=== PATIENT | female | born 1940 | race Caucasian/White ===

== ENCOUNTER 2019-12-19 20:28 | Inpatient (IN) | payer MEDICARE ==
[~2019-12-19] VITALS: Ht 162.6 cm; Wt 55.1 kg
[~2019-12-19 20:28] MED LIST: GLUCOPHAGE500 MG PO; LINZESS145 MCG PO; PROTONIX40 MG PO
[2019-12-19 20:57] LABS: BASOPHILS 0.1 % (0-2); EOSINOPHILS 1.1 % (0-7); HEMATOCRIT 45.7 % (36.0-48.0); IMMATURE GRANULOCYTES 0.2 % (0-5); LYMPHOCYTES 25.2 % (15-50); MCHC 32.8 g/dL (31.0-37.0); MCV 94.4 fL (80.0-100.0); MEAN PLATELET VOLUME 10.3 fL (7.4-10.4); MONOCYTES 8.1 % (2-11); NEUTROPHILS 65.3 % (40-80); PLATELET COUNT 261 10x3/uL (130-400); RBC 4.84 10x6/uL (4.00-5.40); RDW 13.2 % (11.5-14.5); WBC 9.1 10x3/uL (4.8-10.8)
[2019-12-19 21:06] LABS: CALC OSMOLALITY 280 mosm/kg (275-300); CALCIUM 9.6 mg/dL (8.5-10.1); CHLORIDE - SERUM 100 mmol/L (98-107); CREATININE - SERUM 0.5 mg/dL (0.6-1.3); GLUCOSE 172 mg/dL (74-106); POTASSIUM - SERUM 3.9 mmol/L (3.5-5.1); SODIUM 138 mmol/L (136-145); UREA NITROGEN 16 mg/dL (7-18); eGFR NON AFRICAN AMERICAN > 90 mL/min (90-120)
[2019-12-19 21:15] LABS: ALBUMIN 3.6 g/dL (3.4-5.0); ALKALINE PHOSPHATASE 66 U/L (30-120); ALT (SGPT) 20 U/L (10-68); AMYLASE - SERUM 24 U/L (25-115); BILIRUBIN - TOTAL 0.57 mg/dL (0.2-1.3); PROTEIN - SERUM 7.6 g/dL (6.4-8.2)
[2019-12-19 21:23] LABS: LIPASE 37 U/L (73-393); TROPONIN-I < 0.017 ng/mL (0.000-0.060)
[2019-12-19 23:00] VITALS: BP 128/74
[2019-12-20 00:26] LABS: BILIRUBIN NEGATIVE (NEGATIVE); GLUCOSE 100 mg/dL (NEGATIVE); KETONE SMALL mg/dL (NEGATIVE); NITRITE NEGATIVE (NEGATIVE); UROBILINOGEN NORMAL (NORMAL)
[2019-12-20 00:28] LABS: BACTERIA FEW /hpf (NEGATIVE); EPITHELIAL CELLS 0-5 /hpf (0-5); RED CELLS - URINE 0-5 /hpf (0-5); WHITE CELLS - URINE 0-5 /hpf (NEGATIVE)
[2019-12-20 02:11] VITALS: BP 139/78; BMI 25.8
--- NOTE | 2019-12-20 02:43 | NUR ---
ADMIT TO ROOM 2109 AT 0150 FROM ER. ALERT/ORIENTED. IVF NS @ 75ML/HR TO LEF A/C. NONLABORED RESPIRATIONS. ACTIVE BOWEL SOUNDS. ABDOMEN SOFT. PT STATES SHE HAD BM DAY BEFORE YESTERDAY AND DOES NOT FEEL SHE IS IMPACTED AND WANTS TO WAIT AND SEE WHAT HER XRAY SHOWS IN THE MORNING BECAUSE SHE DOES NOT FEEL THE NEED TO BE DISIMPACTED OR GIVEN ENEMAS. ADMISSION ASSESSMENT. HISTORY AND HOME MEDS REVIEWED/UPDATED.
[2019-12-20 04:00] VITALS: BP 139/78
--- NOTE | 2019-12-20 04:47 | NUR ---
SPOKE WITH PATIENT AGAIN ABOUT ORDER FOR DIGITAL IMPACTION AND S/S ENEMAS. PT WANTS ANOTHER XRAY THIS AM TO SEE IF SHE REALLY NEEDS TO HAVE THAT DONE.
--- NOTE | 2019-12-20 09:22 | NUR ---
HELPED PT ON AND OFF BED HUBER, URINE SPILLED ON BED. COMPLETE LINEN CHANGE DONE AT THIS TIME. PT DENIES ANY OTHER NEEDS AT THIS TIME. CALL LIGHT IN REACH, BEDSIDE RAILS X2, NAD NOTED,W ILL CONTINUE TO MONITOR.
[2019-12-20 09:54] LABS: BASOPHILS 0.1 % (0-2); HEMATOCRIT 42.3 % (36.0-48.0); HEMOGLOBIN 13.7 g/dL (12-16); IMMATURE GRANULOCYTES 0.4 % (0-5); LYMPHOCYTES 36.8 % (15-50); MCH 30.6 pg (26.0-34.0); MCHC 32.4 g/dL (31.0-37.0); MCV 94.4 fL (80.0-100.0); MEAN PLATELET VOLUME 9.9 fL (7.4-10.4); MONOCYTES 8.3 % (2-11); NEUTROPHILS 52.4 % (40-80); PLATELET COUNT 240 10x3/uL (130-400); RBC 4.48 10x6/uL (4.00-5.40); RDW 13.3 % (11.5-14.5); WBC 6.9 10x3/uL (4.8-10.8)
[2019-12-20 10:06] LABS: ALBUMIN 3.2 g/dL (3.4-5.0); ALKALINE PHOSPHATASE 55 U/L (30-120); ALT (SGPT) 16 U/L (10-68); CALC OSMOLALITY 283 mosm/kg (275-300); CALCIUM 8.8 mg/dL (8.5-10.1); CARBON DIOXIDE 30.2 mmol/L (21.0-32.0); CHLORIDE - SERUM 99 mmol/L (98-107); CREATININE - SERUM 0.5 mg/dL (0.6-1.3); GLUCOSE 203 mg/dL (74-106); POTASSIUM - SERUM 3.4 mmol/L (3.5-5.1); PROTEIN - SERUM 6.7 g/dL (6.4-8.2); SODIUM 139 mmol/L (136-145); UREA NITROGEN 12 mg/dL (7-18); eGFR NON AFRICAN AMERICAN > 90 mL/min (90-120)
--- NOTE | 2019-12-20 10:13 | NUR ---
Rehab Prescreening Consult recieved and the chart has been reviewed. This patient will need a PT and OT eval to determine if she has a functional decline that would benefit from a return stay in the ARU. She was in the ARU in [facility] of this [facility]. Will discuss with the CM Luanne Mienr RN in the IDT meeting this morning. Milvia Cleary RN Clinical Liaison, Rehab
[2019-12-20 10:14] VITALS: BP 144/73
[2019-12-20 12:00] VITALS: BP 157/84
[2019-12-20 12:22] VITALS: Ht 162.6 cm; Wt 55.1 kg
[2019-12-20 16:00] VITALS: BP 156/87
[2019-12-20 20:00] VITALS: BP 142/72
--- NOTE | 2019-12-21 00:40 | NUR ---
IV TO LEFT AC LEAKING, IV CATH REMOVED, TIP INTACT. PIV RESITED TO LEFT FOREARM, 22 GUAGE, PT TOLERATED WELL.
[2019-12-21 01:12] VITALS: BP 160/88
--- NOTE | 2019-12-21 03:37 | NUR ---
I have reviewed this patient and I concur with the Shift Assessment completed by the Licensed Practical Nurse today this shift.
[2019-12-21 04:05] VITALS: BP 153/84
[2019-12-21 04:57] LABS: BASOPHILS 0.1 % (0-2); EOSINOPHILS 1.5 % (0-7); HEMATOCRIT 40.8 % (36.0-48.0); HEMOGLOBIN 13.3 g/dL (12-16); IMMATURE GRANULOCYTES 0.3 % (0-5); LYMPHOCYTES 25.8 % (15-50); MCH 30.7 pg (26.0-34.0); MCHC 32.6 g/dL (31.0-37.0); MCV 94.2 fL (80.0-100.0); MEAN PLATELET VOLUME 10.2 fL (7.4-10.4); MONOCYTES 9.4 % (2-11); NEUTROPHILS 62.9 % (40-80); PLATELET COUNT 245 10x3/uL (130-400); RBC 4.33 10x6/uL (4.00-5.40); RDW 13.2 % (11.5-14.5)
[2019-12-21 05:05] LABS: WBC 9.6 10x3/uL (4.8-10.8)
[2019-12-21 05:13] LABS: ALBUMIN 3.1 g/dL (3.4-5.0); ALKALINE PHOSPHATASE 55 U/L (30-120); ALT (SGPT) 14 U/L (10-68); BILIRUBIN - TOTAL 0.54 mg/dL (0.2-1.3); CALCIUM 8.5 mg/dL (8.5-10.1); CARBON DIOXIDE 30.4 mmol/L (21.0-32.0); CHLORIDE - SERUM 103 mmol/L (98-107); CREATININE - SERUM 0.4 mg/dL (0.6-1.3); PROTEIN - SERUM 6.3 g/dL (6.4-8.2); SODIUM 140 mmol/L (136-145); eGFR NON AFRICAN AMERICAN > 90 mL/min (90-120)
[2019-12-21 05:15] LABS: CALC OSMOLALITY 278 mosm/kg (275-300); GLUCOSE 130 mg/dL (74-106); POTASSIUM - SERUM 2.9 mmol/L (3.5-5.1); UREA NITROGEN 6 mg/dL (7-18)
[2019-12-21 08:13] VITALS: BP 170/84
--- NOTE | 2019-12-21 09:18 | NUR ---
K TIERNEY HUNG DUE TO PT NOT BEING ABLE TO TAKE PO K. PT DENIES ANY NEEDS AT THIS TIME. CALL LIGHT IN REACH,NAD NOTED, DARIUS CONTINUE TO MONITOR.
--- NOTE | 2019-12-21 11:08 | NUR ---
BLOOD SUGAR OF 192, 2UNITS GIVEN PER S/S. PT DENIES ANY NEEDS AT THIS TIME. CALL LIGHT IN REACH,NAD NOTED, WILL CONTINUE TO MONITOR./
[2019-12-21 12:27] VITALS: BP 145/89
--- NOTE | 2019-12-21 14:31 | NUR ---
PT HAD TWO MEDIUM SIZE BOWEL MOVEMENTS.
--- NOTE | 2019-12-21 16:01 | NUR ---
OT NOTE; PT COMPLETED BED BATH WITH MAX/TOTAL. PT REQUIRED SET UP FOR ORAL CARE WITH TOOTHETTES. PT COMPLETED BED MOB TASKS WITH MAX A. [phone] THANK YOU,EAN HONG
[2019-12-21 16:10] VITALS: BP 136/58
--- NOTE | 2019-12-21 16:31 | NUR ---
BLOOD SUGAR OF 110. NO COVERAGE NEEDED PER S/S. HELPED PT ON BEDPAN. PT WILL PUSH CALL LIGHT WHEN DONE USING BEDPAN.
--- NOTE | 2019-12-21 19:15 | NUR ---
REPORT RECEIVED, WILL CONTINUE POC. PATIENT IS AAOX4, LYING IN SUPINE POSITION. NO S/S OF DISTRESS OBSERVED, RR EVEN AND UNLABORED ON ROOM AIR. ASSISTED PATIENT WITH REPOSITIONING IN BED. PATIENT DENIES FURTHER NEEDS AT THIS TIME. CL IN REACH, BED LOCKED AND LOWERED. WILL CTM.
[2019-12-21 22:16] VITALS: BP 155/88
--- NOTE | 2019-12-22 01:49 | NUR ---
I have reviewed this patient and I concur with the Shift Assessment completed by the Licensed Practical Nurse today this shift.
[2019-12-22 05:29] VITALS: BP 134/68
[2019-12-22 05:49] LABS: BASOPHILS 0.1 % (0-2); EOSINOPHILS 2.3 % (0-7); HEMATOCRIT 41.2 % (36.0-48.0); HEMOGLOBIN 13.4 g/dL (12-16); IMMATURE GRANULOCYTES 0.4 % (0-5); LYMPHOCYTES 23.8 % (15-50); MCH 30.5 pg (26.0-34.0); MCHC 32.5 g/dL (31.0-37.0); MCV 93.6 fL (80.0-100.0); MEAN PLATELET VOLUME 10.1 fL (7.4-10.4); MONOCYTES 9.5 % (2-11); NEUTROPHILS 63.9 % (40-80); PLATELET COUNT 244 10x3/uL (130-400); RDW 13.5 % (11.5-14.5); WBC 9.9 10x3/uL (4.8-10.8)
[2019-12-22 06:30] LABS: ALBUMIN 3.1 g/dL (3.4-5.0); ALKALINE PHOSPHATASE 60 U/L (30-120); ALT (SGPT) 13 U/L (10-68); BILIRUBIN - TOTAL 0.66 mg/dL (0.2-1.3); CALC OSMOLALITY 281 mosm/kg (275-300); CALCIUM 8.4 mg/dL (8.5-10.1); CARBON DIOXIDE 27.6 mmol/L (21.0-32.0); CHLORIDE - SERUM 105 mmol/L (98-107); CREATININE - SERUM 0.5 mg/dL (0.6-1.3); GLUCOSE 129 mg/dL (74-106); POTASSIUM - SERUM 3.5 mmol/L (3.5-5.1); PROTEIN - SERUM 5.9 g/dL (6.4-8.2); SODIUM 142 mmol/L (136-145); UREA NITROGEN 5 mg/dL (7-18); eGFR NON AFRICAN AMERICAN > 90 mL/min (90-120)
[2019-12-22 08:40] VITALS: BP 149/75
--- NOTE | 2019-12-22 10:57 | NUR ---
PER KENTON SARMIENTO PT FAKED PASSING OUT IN FRONT OF HER AFTER BEING TOLD SHE WAS GOING TO BE DISCHARGED SOON. PT STATED TO HER SHE CAN;T GET UP OR MOVE BECAAUSE SHE IS TOO WEAK. THIS NURSE STATED TO K[place]ON SARMIENTO THAT PT SAID SHE COULDN'T MOVE HER ARMS THIS MORNING EVEN THOUGH THIS NURSE WATCHED HER FEED HERSELF BREAKAST AND PT ALSO SAID SHE WAS DIZZY WHEN SHE MOVED. KENTON VERBALIZED UNDERSTANDING AND STATED PT WANTS TO STAY HERE NOT GO HOME FOR WHATEVER REASON SHE ALSO STATES PT IS STILL IMPACTED AND TO GIVE X2 SUPPOSITORYS TO DISIMPACT PT. I VERBALIZED UNDERSTANDING.
[2019-12-22] MEDS ORDERED: HUMALOG 30100 UNITS/ SC (11:17)
[2019-12-22] MEDS ORDERED: PROTONIX40 MG PO (11:17)
[2019-12-22] MEDS ORDERED: COLACE100 MG PO (11:17)
--- NOTE | 2019-12-22 11:19 | NUR ---
WENT TO PT'S BEDSIDE WITH KENTON SARMIENTO. KENTON SARMIENTO EXPLAINED TO HER THAT SHE WILL BE GOING TO REHAB FOR PHYSICAL THERAPY THREE HOURS A DAY =. PT AGREED TO GO TO REHAB TODAY.
[2019-12-22 11:29] VITALS: BP 145/61
--- NOTE | 2019-12-22 11:41 | MORECARE ---
CASE MANAGEMENT DISCHARGE SUMMARY PATIENT: MCKAYLA JEROME UNIT: [id number] ADM DATE: 12/20/19 AGE: 79 : 41 SEX: F ROOM/BED: D.2108 AUTHOR: BAYLEE GARDINER PHYSICIAN: REFERRING PHYSICIAN: KRISHAN CHRISTIANSON MD DATE OF SERVICE: 12/22/19 Discharge Plan Patient Name: MCKAYLA JEROME Facility: [facility]:[place] : 1940 Planned Disposition: Inpatient Rehab Anticipated Discharge Date: 12/22/19 Discharge Date: Expected LOS: 2 Initial Reviewer: [email or web address] Initial Review Date: 12/22/2019 Generated: 12/22/19 12:41 pm DCPIA - Discharge Planning Initial Assessment Updated by [id number]: Luanne Miner on 12/22/19 11:39 am * Is the patient Alert and Oriented? Yes * How many steps to enter\exit or inside your home? 2/0 * PCP Fatuma Holland at [facility] * [facility] * Preadmission Environment Home with Family * ADLs Partial Dependent * Partial ADLs (Assistance needed) Ambulation * Equipment Cane Walker * List name and contact numbers for known caregivers / representatives who currently or will assist patient after discharge: Kristi Chauhanluisito [facility] - [phone] * Verbal permission to speak to the caregivers and representatives has been obtained from the patient. Yes * Community resources currently utilized None * Additional services required to return to the preadmission environment? Yes * Can the patient safely return to the preadmission environment? Yes * Has this patient been hospitalized within the prior 30 days at any hospital? No Patient Name: MCKAYLA JEROME Page [phone] at 1141 All edits/amendments must be made on the electronic document DICTATION DATE: 12/22/19 1141 CHOPPED STRAND OPERATOR: JOSLYN 12/22/19 1141 RPT#: [id number] DC DATE: STATUS: ADM IN [facility] [address] [place] [address] END OF REPORT
--- NOTE | 2019-12-22 11:50 | MORECARE ---
CASE MANAGEMENT DISCHARGE SUMMARY PATIENT: MCKAYLA JEROME UNIT: [id number] ADM DATE: 12/20/19 AGE: 79 : 41 SEX: F ROOM/BED: D.6655 AUTHOR: BAYLEE GARDINER PHYSICIAN: REFERRING PHYSICIAN: KRISHAN CHRISTIANSON MD DATE OF SERVICE: 12/22/19 Discharge Plan Patient Name: MCKAYLA JEROME Facility: [facility]:[place] : 1940 Planned Disposition: Inpatient Rehab Anticipated Discharge Date: 12/22/19 Discharge Date: Expected LOS: 2 Initial Reviewer: [email or web address] Initial Review Date: 12/22/2019 Generated: 12/22/19 12:49 pm Comments DCP- Discharge Planning Updated by [id number]: Luanne Miner on 12/22/19 10:[address] Patient Name: MCKAYLA JEROME Admission Status: ER Accout number: [id number] Admission Date: 12-20-2019 : 1940 Admission Diagnosis:NONINFECTIVE GASTROENTERITIS AND COLITIS, UNSPECIFIED Attending: KRISHAN CHRISTIANSON Current LOS: 2 Anticipated DC Date: 12-22-2019 Planned Disposition: Inpatient Rehab Primary Insurance: MEDICARE PART A ONLY Discharge Planning Comments: CM met with patient to complete initial dc planning assessment. CM educated patient on the CM role and verbal consent given by patient to complete assessment. Patient lives in [place] with her daughter. CM discussed availability of home health, rehab services, and medical equipment. Patient states she would like to go to [facility] inpatient rehab. She has only Medicare A and she states she is ok with paying the bill for the doctor's visits. I informed her it would be 300 dollars plus 94 dollars a visit and she states "that's fine." Milvia in inpatient rehab states they will accept today. CM will continue to follow and will assist as needed with dc plans/needs. Aeronautical Engineer: Luanne Miner DCPIA - Discharge Planning Initial Assessment Updated by [email or web address]: Luanne Miner on 12/22/19 11:39 am * Is the patient Alert and Oriented? Yes * How many steps to enter\\exit or inside your home? 2/0 * PCP Fatuma Holland at [facility] [address] * Pharmacy [facility] * Preadmission Environment Home with Family * ADLs Partial Dependent * Partial ADLs (Assistance needed) Ambulation * Equipment Cane Walker * List name and contact numbers for known caregivers / representatives who currently or will assist patient after discharge: Kristi Sosa - DTR - [phone] * Verbal permission to speak to the caregivers and representatives has been obtained from the patient. Yes * Community resources currently utilized None * Additional services required to return to the preadmission environment? Yes * Can the patient safely return to the preadmission environment? Yes * Has this patient been hospitalized within the prior 30 days at any hospital? No Coverage Notice Reviewer: [id number] Paula Miner Notice Issued Date-Time: 12/22/2019 11:42 Notice Type: IM Discharge Notice Notice Delivered To: Patient Relationship to Patient: Self Junior Sales Representative Name: Delivery Method: HAND - Hand Delivered Candy Days: Prior Verbal Notification: Recipient Understood Notice: Yes Recipient Signature: Yes Med Rec Note Co-signed by Attending: Coverage Notice Comment: DRISS for inpatient rehab at [facility] Last DP export: 12/22/19 10:41 a Patient Name: MCKAYLA JEROME Page 19309 at 1150 All edits/amendments must be made on the electronic document DICTATION DATE: 12/22/19 1149 INSPECTOR RADAR AND ELECTRONICS: JOSLYN 12/22/19 1149 RPT#: [id number] DC DATE: STATUS: ADM IN [facility] [address] [place] [address] END OF REPORT
--- NOTE | 2019-12-22 14:13 | NUR ---
OT NOTE: PT COMPLETED BED MOB WITH SIDE ROLLING REQUIRED MOD/MAX A. PT COMPLETED POSITIONING WITH MOD/MAX A. PT COMPLETED LB HYGIENE WITH TOTAL A. PT COMPLETED HAND HYGIENE WITH SET UP. [phone] THANK YOU,EAN HONG
--- NOTE | 2019-12-22 14:21 | NUR ---
OT NOTE: MADE SEVERAL ATTEMPTS TO SEE PT IN PM.. FIRST SHE WAS EATING, SECOND TIME SHE WAS ON THE BED HUBER FOR EXT TIME. DISCUSSED NEED FOR REHAB, PT DIDNT UNDERSTAND WHY SHE WAS GOING AT THIS TIME WHEN SHE COULDNT EVEN MOVE. EXPLAINED THAT THIS IS EXACTLY WHY SHE IS GOING...SO THAT SHE CAN GET STRONGER AND IMPROVE WITH ADLS AND MOBILITY SO THAT SHE CAN RETURN HOME. BJ BARKER, OTR/L
--- NOTE | 2019-12-22 16:06 | NUR ---
CALLED REPORT TO RAMSEY CHRISTOPHER IN REHAB. LEFT FA 22G IV DC'D WITH CATH INTACT. PT IS GOING TO ROOM 1112A. NO TELE.
--- NOTE | 2019-12-22 16:14 | NUR ---
DISCHARGE INSTRUCTIONS GIVEN TO PT. PT HAS NO FURTHER QUESTIONS. CHART COPY SIGNED. PT TAKEN TO REAB VIA WC BY SAGGER PREPARER WITH ALL BELONGINGS.
--- NOTE | 2019-12-23 07:30 | MORECARE ---
CASE MANAGEMENT DISCHARGE SUMMARY PATIENT: MCKAYLA JEROME UNIT: [id number] ADM DATE: 12/20/19 AGE: 79 : 41 SEX: F ROOM/BED: D.6140 AUTHOR: BAYLEE GARDINER PHYSICIAN: REFERRING PHYSICIAN: KRISHAN CHRISTIANSON MD DATE OF SERVICE: 12/23/19 Discharge Plan Patient Name: MCKAYLA JEROME Facility: [facility]:[place] : 1940 Planned Disposition: Inpatient Rehab Anticipated Discharge Date: 12/22/19 Discharge Date: 12/22/2019 Expected LOS: 2 Initial Reviewer: [email or web address] Initial Review Date: 12/22/2019 Generated: 12/23/19 8:29 am Comments DCP- Discharge Planning Updated by [id number]: Luanne Miner on 12/22/19 10:[address] Patient Name: MCKAYLA JEROME Admission Status: ER Accout number: [id number] Admission Date: 12-20-2019 : 1940 Admission Diagnosis:NONINFECTIVE GASTROENTERITIS AND COLITIS, UNSPECIFIED Attending: KRISHAN CHRISTIANSON Current LOS: 2 Anticipated DC Date: 12-22-2019 Planned Disposition: Inpatient Rehab Primary Insurance: MEDICARE PART A ONLY Discharge Planning Comments: CM met with patient to complete initial dc planning assessment. CM educated patient on the CM role and verbal consent given by patient to complete assessment. Patient lives in [place] with her daughter. CM discussed availability of home health, rehab services, and medical equipment. Patient states she would like to go to [facility] inpatient rehab. She has only Medicare A and she states she is ok with paying the bill for the doctor's visits. I informed her it would be 300 dollars plus 94 dollars a visit and she states "that's fine." Milvia in inpatient rehab states they will accept today. CM will continue to follow and will assist as needed with dc plans/needs. Legal Technician: Luanne Miner DCPIA - Discharge Planning Initial Assessment Updated by [email or web address]: Luanne Miner on 12/22/19 11:39 am * Is the patient Alert and Oriented? Yes * How many steps to enter\\exit or inside your home? 2/0 * PCP Fatuma Holland at [facility] on [address] * [facility] [address] * Preadmission Environment Home with Family * ADLs Partial Dependent * Partial ADLs (Assistance needed) Ambulation * Equipment Cane Walker * List name and contact numbers for known caregivers / representatives who currently or will assist patient after discharge: Kristi Sosa - R - [phone] * Verbal permission to speak to the caregivers and representatives has been obtained from the patient. Yes * Community resources currently utilized None * Additional services required to return to the preadmission environment? Yes * Can the patient safely return to the preadmission environment? Yes * Has this patient been hospitalized within the prior 30 days at any hospital? No Coverage Notice Reviewer: [email or web address] Paula Miner Notice Issued Date-Time: 12/22/2019 11:42 Notice Type: IM Discharge Notice Notice Delivered To: Patient Relationship to Patient: Self Mixer Dry Food Products Name: Delivery Method: HAND - Hand Delivered Candy Days: Prior Verbal Notification: Recipient Understood Notice: Yes Recipient Signature: Yes Med Rec Note Co-signed by Attending: Coverage Notice Comment: DRISS for inpatient rehab at [facility] Last DP export: 12/22/19 10:50 a Patient Name: MCKAYLA JEROME Page [phone] at 0730 All edits/amendments must be made on the electronic document DICTATION DATE: 12/23/19728 COMPUTER SALESPERSON RETAIL: JOSLYN 12/23/19728 RPT#: [id number] DC DATE:12/22/19 STATUS: DIS IN [place] [id number] [place] [address] END OF REPORT
== END 2019-12-22 16:16 | DRG 392 ==
LOC: D.ER 20:28 → D.M2 12-20 00:39
PROVIDERS: Emergency Medicine; Family Medicine; ADMIT Internal Medicine Nephrology; ATTEND Internal Medicine Nephrology
DX: K52.9 Noninfective gastroenteritis and colitis, unspecified (principal); G72.81 Critical illness myopathy; E86.0 Dehydration; K56.41 Fecal impaction; E11.65 Type 2 diabetes mellitus with hyperglycemia; K57.90 Diverticulosis of intestine, part unspecified, without perforation or abscess without bleeding

== ENCOUNTER 2019-12-22 15:36 | Inpatient (IN) | payer MEDICARE ==
[~2019-12-22] VITALS: Ht 162.6 cm; Wt 54.9 kg
--- NOTE | ~2019-12-22 | RHP ---
PATIENT: MCKAYLA JEROME MEDICAL RECORD: [id number] ACCOUNT: [id number] [facility] AD[facility]ION DATE: 12/22/19 REHABILITATION HISTORY AND PHYSICAL EXAMINATION POST ADMISSION PHYSICIAN EXAMINATION ADMITTING DIAGNOSIS: Critical illness myopathy. HISTORY OF PRESENT ILLNESS: The patient is a 79-year-old female patient who presented to the Emergency Room on 12/20/2019 with nausea, vomiting, generalized weakness, fatigue, inability to walk and loss of ADLs. The patient was having this ongoing since August. She said she felt after striking her head and having postconcussion syndrome, she was sent to the rehab and stayed 7 days and then discharged home with her daughter at discharge. She declined home health for continued PT and OT. She says that she has continued to decline her physical ability to walk, complete her ADLs. She has got a history of noncompliance, uncontrolled diabetes, vertigo and multiple falls. Prior to the fall in August, she lives with her daughter who is out of town frequently and she stays alone. 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 Currently, she has got prolonged immobility, progressive generalized weakness especially in her lower extremities affecting her tolerance to PT, very fatigued, has limited flexion and extension. She has got proximal muscle strength that is decreased. She has decreased fine motor coordination, decreased bilateral broach trouble shooter and poor trunk strength. She needs to improve her endurance, ADLs and mobility in order to get back home. She is highly motivated and has good family support to get back to her prior level of functioning and get independent. COMORBIDITIES: Include constipation, debility, decrease mobility, decrease in physical functioning, diabetes, fatigue, low magnesium and vertigo. PAST MEDICAL HISTORY: Significant for vertigo. She has got a history of noncompliance, got a history of multiple falls, menopause. PAST SURGICAL HISTORY: None. ALLERGIES: VALIUM AND CODEINE. CURRENT MEDICATIONS: Include Metformin 500 mg b.i.d. with meals, Protonix 40 mg daily. She is on an electrolyte protocol at this time. She is on a low-resistant sliding scale of insulin and Colace 100 mg b.i.d. HABITS: No alcohol or tobacco use. FAMILY HISTORY: Noncontributory. SOCIAL HISTORY: The patient hopes to return back home and get back to her prior level of functioning. REVIEW OF SYSTEMS: GENERAL: Does complain of some weakness and fatigue. HEENT: Denies cold, cough, or congestion. CARDIOVASCULAR: Denies any chest pain. PHYSICAL EXAMINATION: HISTORY AND PHYSICAL [id number] MCKAYLA JEROME VITAL SIGNS: Stable, afebrile. GENERAL: Elderly female, in no acute distress upon exam. HEENT: Normocephalic and atraumatic. Mucosa moist. NECK: Supple. No lymphadenopathy. LUNGS: Clear in upper daniels. HEART: Regular rate and rhythm. She does have a holosystolic murmur. ABDOMEN: Soft, benign and nondistended. Positive bowel sounds times 4. EXTREMITIES: No clubbing, cyanosis or edema. NEUROLOGIC: Does have decreased official greeter strength bilaterally. She also has noted proximal muscle weakness in her quads of her upper thighs. LABORATORY DATA: Her white count is 8.9, H&H 13 and 39, and platelet count was noted to be 268. Her sodium is 140, potassium 3.1, BUN and creatinine of 5 and 0.3 and blood sugar is noted to be 133. ASSESSMENT: This is a 79-year-old female patient admitted to the rehab with a working diagnosis of critical illness myopathy. The patient has potential to make improvement. We instituted the following multidisciplinary therapies including, but not limited physical, occupational, respiratory, speech, nutritional services, prosthetics and orthotics. Given her complex medical condition and risks for more complications, rehabilitation services cannot be provided at a low level of care such as [facility] facility. PLAN: 1. Admit to [facility] for intensive inpatient therapy to include the following disciplines; A. Physical therapy to improve gait, all transfer skills and bed mobility to a modified independent level. B. Occupational therapy to a modified independent level. C. Case management to assist with discharge planning and placement options. D. Nutrition to assist with nutritional needs. E. Rehabilitation nursing to assist in monitoring the patient's underlying medical conditions and to assist with any type of bowel or bladder management. 2. The patient's current medication and medical care will be continued. 3. The patient will be placed on standard fall precautions. 4. The patient's estimated length of stay is approximately 7-10 days. 5. We will discuss the patient during care team staff meeting this week. I am going to continue her electrolyte protocol. Repeat her potassium in the a.m. TRANSINT:[id number] Voice Confirmation ID: [id number] DOCUMENT ID: [id number] JENNIFER notes whether there has been none or any medical/functional change since admission: - No change since pre-admission screen. JENNIFER attests patient continues to be appropriate for IRF: - Continues to be appropriate. HISTORY AND PHYSICAL [id number] MCKAYLA JEROME JOHN SCOTT MD CC: [id number] DICTATION DATE: 12/23/19928 RAM CAR OPERATOR: 12/23/19 1145 ADM IN [place] [id number] [place] [id number]
[~2019-12-22 15:36] MED LIST changes: +COLACE100 MG PO; +HUMALOG 30100 UNITS/ SC
--- NOTE | 2019-12-22 16:30 | NUR ---
RECIEVED TO ROOM 1112A/.ASSISTED IN BED.CL IN REACH.ORIENTED TO ROOM.
--- NOTE | 2019-12-22 19:15 | NUR ---
RECEIVED PT SITTING UP IN BED WATCHING TV. DENIES ANY NEEDS OR PAIN. NO SIGNS OF ACUTE DISTRESS NOTED. CALL LIGHT WITHIN REACH. FALL PRECAUTIONS IN PLACE. CPOC
[2019-12-22 20:33] VITALS: BP 148/74
[2019-12-22 23:40] VITALS: BP 148/74; BMI 20.8
--- NOTE | 2019-12-23 00:33 | NUR ---
PT LYING IN BED EYES CLOSED RESTING QUIETLY. RR EVEN AND UNLABORED. CALL LIGHT WITHIN REACH. FALL PRECAUTIONS IN PLACE. CPOC
--- NOTE | 2019-12-23 03:39 | NUR ---
PT LYING IN BED EYES CLOSED RESTING QUIETLY. RR EVEN AND UNLABORED. CALL LIGHT WITHIN REACH. BED ALARM ON. CPOC
[2019-12-23 05:50] LABS: BASOPHILS 0 % (0-2); EOSINOPHILS 3.3 % (0-7); HEMATOCRIT 39.8 % (36.0-48.0); HEMOGLOBIN 13.1 g/dL (12-16); IMMATURE GRANULOCYTES 0.5 % (0-5); LYMPHOCYTES 27.6 % (15-50); MCH 30.8 pg (26.0-34.0); MCHC 32.9 g/dL (31.0-37.0); MCV 93.4 fL (80.0-100.0); MEAN PLATELET VOLUME 10.3 fL (7.4-10.4); MONOCYTES 9.2 % (2-11); NEUTROPHILS 59.4 % (40-80); PLATELET COUNT 268 10x3/uL (130-400); RBC 4.26 10x6/uL (4.00-5.40); RDW 13.4 % (11.5-14.5); WBC 8.9 10x3/uL (4.8-10.8)
[2019-12-23 06:05] LABS: CALC OSMOLALITY 277 mosm/kg (275-300); CALCIUM 8.5 mg/dL (8.5-10.1); CARBON DIOXIDE 28.6 mmol/L (21.0-32.0); CHLORIDE - SERUM 104 mmol/L (98-107); GLUCOSE 133 mg/dL (74-106); POTASSIUM - SERUM 3.1 mmol/L (3.5-5.1); SODIUM 140 mmol/L (136-145); UREA NITROGEN 5 mg/dL (7-18)
[2019-12-23 06:08] LABS: CREATININE - SERUM 0.3 mg/dL (0.6-1.3); eGFR NON AFRICAN AMERICAN > 90 mL/min (90-120)
--- NOTE | 2019-12-23 06:40 | NUR ---
PT LYING IN BED ON RIGHT SIDE EYES CLOSED RESTING. RR EVEN AND UNLABORED. CALL LIGHT WITHIN REACH. BED ALARM ON. CPOC
[2019-12-23 08:00] VITALS: BP 130/73
--- NOTE | 2019-12-23 08:00 | NUR ---
PT RESTING IN BED WITH EYES OPEN CALL LIGHT IN REACH NO PROBLEMS WILL MONITER
--- NOTE | 2019-12-23 12:58 | NUR ---
PATIENT ADMITTED TO REHAB FROM ACUTE FLOOR. PATIENT LIVES WITH DAUGHTER . DME AT HOME IS [facility]. PCP IS IRENE EUBANKS AT [facility] IN [place]. WILL CONTINUE TO FOLLOW WITH PATIENT.
[2019-12-23 14:13] VITALS: Ht 162.6 cm; Wt 54.9 kg
--- NOTE | 2019-12-23 18:03 | NUR ---
PT RESTING IN BED WITH EYES OPEN CALL LIGHT IN REACH WILL MONITER
[2019-12-23 20:00] VITALS: BP 139/65
--- NOTE | 2019-12-23 22:39 | NUR ---
RECEIVED PATIENT LYING IN BED. PATIENT HAS A VERY FLAT AFFECT, IRRITABLE, SHE SAYS THAT SHE CAN NOT USE HER ARMS. THIS NURSE ENCOURGED HER TO TRY AND SHE YELLED AT THIS NURSE, "I CAN'T REACH ANYTHING". COMPLIANT WITH MEDS. CALL LIGHT WITHIN REACH. WILL CONTINUE TO MONITOR.
[2019-12-24 08:00] VITALS: BP 158/80
[2019-12-24 08:08] LABS: BASOPHILS 0.1 % (0-2); EOSINOPHILS 3.8 % (0-7); HEMATOCRIT 41.8 % (36.0-48.0); HEMOGLOBIN 13.7 g/dL (12-16); IMMATURE GRANULOCYTES 0.3 % (0-5); LYMPHOCYTES 31.8 % (15-50); MCH 30.7 pg (26.0-34.0); MCHC 32.8 g/dL (31.0-37.0); MCV 93.7 fL (80.0-100.0); MEAN PLATELET VOLUME 10.3 fL (7.4-10.4); MONOCYTES 10.4 % (2-11); NEUTROPHILS 53.6 % (40-80); PLATELET COUNT 264 10x3/uL (130-400); RBC 4.46 10x6/uL (4.00-5.40); RDW 13.4 % (11.5-14.5)
--- NOTE | 2019-12-24 08:13 | NUR ---
PATIENT UP IN BED EATING BREAKFAST, DENIES ANY PAIN OR NEEDS AT THIS TIME, C/L AND H2O IN REACH
[2019-12-24 08:26] LABS: CALCIUM 8.6 mg/dL (8.5-10.1); CARBON DIOXIDE 31.3 mmol/L (21.0-32.0); CHLORIDE - SERUM 103 mmol/L (98-107); GLUCOSE 113 mg/dL (74-106); SODIUM 141 mmol/L (136-145)
[2019-12-24 08:27] LABS: CALC OSMOLALITY 279 mosm/kg (275-300); CREATININE - SERUM 0.5 mg/dL (0.6-1.3); UREA NITROGEN 7 mg/dL (7-18); eGFR NON AFRICAN AMERICAN > 90 mL/min (90-120)
[2019-12-24 08:28] LABS: POTASSIUM - SERUM 2.9 mmol/L (3.5-5.1)
--- NOTE | 2019-12-24 12:00 | NUR ---
PATIENT RESTING IN BED, DENIES ANY PAIN OR NEEDS AT THIS TIME, C/L AND H2O IN REACH.
--- NOTE | 2019-12-24 19:58 | NUR ---
PT IN BED TALKING ON PHONE, NO NEEDS NOTED, FALL PRECAUTIONS IN PLACE, FLUIDS/CALL LIGHT WITHIN REACH
[2019-12-24 20:04] VITALS: BP 114/78
--- NOTE | 2019-12-25 08:00 | NUR ---
SHIFT ASSMT COMPLETED.
[2019-12-25 10:30] VITALS: BP 136/85
--- NOTE | 2019-12-25 12:00 | NUR ---
SITTING UP EATING LUNCH.
--- NOTE | 2019-12-25 19:34 | NUR ---
PT UP IN CHAIR, ON PHONE, NO NEEDS NOTED, FALL PRECAUTIONS IN PLACE, FLUIDS/CALL LIGHT WITHIN REACH
--- NOTE | 2019-12-26 01:48 | NUR ---
PT ASLEEP AROUSES EASILY TO VOICE, NO NEEDS NOTED, FLUIDS/CALL LIGHT WITHIN REACH, FALL PRECAUTIONS IN PLACE
[2019-12-26 02:53] VITALS: BP 135/66; BP 146/76
[2019-12-26 08:11] VITALS: BP 148/83
--- NOTE | 2019-12-26 09:38 | NUR ---
PATIENT IS ALERT/ORIENT. SITTING UP IN WHEELCHAIR AT BEDSIDE. VOICES NO NEEDS AT THIS TIME. WILL CONTINUE WITH PLAN OF CARE
--- NOTE | 2019-12-26 10:39 | NUR ---
PRN PAIN MEDICATION GIVEN FOR BILATERAL ARM/SHOULDER PAIN PER PATIENT REQUEST
--- NOTE | 2019-12-26 13:29 | NUR ---
I have reviewed this patient and I concur with the Shift Assessment completed by the Licensed Practical Nurse today this shift.
--- NOTE | 2019-12-26 19:58 | NUR ---
PT IN BED WATCHING TV, NO NEEDS NOTED, FALL PRECAUTIONS IN PLACE, FLUIDS/CALL LIGHT WITHIN REACH, PT AC/HS,
--- NOTE | 2019-12-26 22:17 | NUR ---
MED PASS COMPLETE, PT IN BED WATCHING TV, NO NEEDS NOTED
[2019-12-27 00:16] VITALS: BP 150/78
[2019-12-27 06:45] LABS: BASOPHILS 0.1 % (0-2); EOSINOPHILS 2.5 % (0-7); HEMATOCRIT 41.4 % (36.0-48.0); HEMOGLOBIN 13.4 g/dL (12-16); IMMATURE GRANULOCYTES 0.4 % (0-5); LYMPHOCYTES 38.1 % (15-50); MCH 30.4 pg (26.0-34.0); MCHC 32.4 g/dL (31.0-37.0); MCV 93.9 fL (80.0-100.0); MEAN PLATELET VOLUME 10.1 fL (7.4-10.4); MONOCYTES 8.5 % (2-11); NEUTROPHILS 50.4 % (40-80); PLATELET COUNT 294 10x3/uL (130-400); RBC 4.41 10x6/uL (4.00-5.40); RDW 13.5 % (11.5-14.5); WBC 6.9 10x3/uL (4.8-10.8)
[2019-12-27 07:01] LABS: CALC OSMOLALITY 277 mosm/kg (275-300); CALCIUM 8.7 mg/dL (8.5-10.1); CARBON DIOXIDE 29.5 mmol/L (21.0-32.0); CHLORIDE - SERUM 102 mmol/L (98-107); CREATININE - SERUM 0.4 mg/dL (0.6-1.3); GLUCOSE 113 mg/dL (74-106); POTASSIUM - SERUM 3.4 mmol/L (3.5-5.1); SODIUM 140 mmol/L (136-145); UREA NITROGEN 8 mg/dL (7-18); eGFR NON AFRICAN AMERICAN > 90 mL/min (90-120)
--- NOTE | 2019-12-27 08:00 | NUR ---
PATIENT LYING IN BED RESTING, AWAKE AND ALERT, ASSESSMENT COMPLETE, DENIES ANY NEEDS AT THIS TIME, C/L AND H2O IN REACH.
[2019-12-27 08:24] VITALS: BP 144/77
--- NOTE | 2019-12-27 12:00 | NUR ---
UP IN W/C SITTING BESIDE BED WATCHING TV, FSBS 168 2 UNITS GIVEN PER ORDERS, DENIES ANY OTHER NEEDS AT THIS TIME, C/L AND H2O IN REACH.
--- NOTE | 2019-12-27 13:06 | NUR ---
Nutrition Follow-up: Sitting in chair eating lunch at time of visit. Reports eating what she can. C/o difficulty cutting foods and needing assistance. Drinking some Glucerna. Denies N/V/C/D. Diet: Diabetic PO intake: 25-50% Wt: 121# (12/22) Last BM: 12/24 Labs noted: Glu 113, K+ 3.4 Meds noted: KDur, Glucophage, Protonix, Humalog, Colace -Encourage PO intake and honor food preferences within diet restrictions. -Will ask kitchen to chop foods for pt. -Monitor wt. -RD following.
--- NOTE | 2019-12-27 16:00 | NUR ---
RESTING IN BED WATCHING TV, DENIES ANY NEEDS AT THIS TIME, C/L AND FLUIDS IN REACH.
--- NOTE | 2019-12-27 20:00 | NUR ---
ALERT RESTING IN BED DENIES PAIN OR NEEDS AT THIS TIME, SEE SHIFT ASSESSMENT, CALL LIGHT IN REACH
[2019-12-27 20:07] VITALS: BP 139/66
--- NOTE | 2019-12-28 01:00 | NUR ---
ASSISTED WITH BED HUBER AND REPOSITIONED IN BED CALL LIGHT IN REACH
--- NOTE | 2019-12-28 06:17 | NUR ---
NO CHANGE IN ASSESSMENT
--- NOTE | 2019-12-28 07:15 | NUR ---
AROUSES EASILY TO VERBAL STIMULI.ORIENTED X 3.WEAKNESS AND DECREASED ROM TO ALL 4 EXTREMITIES.DENIES NEEDS AT PRESENT TIME.WILL CONTINUE WITH CURRENT PLAN OF CARE,MONITOR FOR CHANGES.CL IN EASY REACH,BED IN LOW POSITION.
[2019-12-28 08:23] VITALS: BP 129/67
--- NOTE | 2019-12-28 09:05 | NUR ---
PO MEDS TAKEN WITHOUT DIFFICULTY.
--- NOTE | 2019-12-28 12:27 | NUR ---
FSBS 170.2UNITS HUMALOG SQ PER SLIDING SCALE GIVEN.IN BED ,CL IN EASY REACH.
--- NOTE | 2019-12-28 19:13 | NUR ---
GREETED PATIENT AND INTRODUCED MYSELF HER NURSE. PATIENT IS LAYING IN BED RESTING QUIETLY AT THIS TIME. DENIES ANY NEEDS. RESPIRATIONS EVEN. NO S/S OF DISTRESS. CALL LIGHT IN REACH.
[2019-12-28 20:00] VITALS: BP 137/73
[2019-12-28 21:58] VITALS: BP 137/87
--- NOTE | 2019-12-29 02:23 | NUR ---
PT RESTING QUIETLY WITH EYES CLOSED. RESPIRATIONS EVEN. NO S/S OF DISTRESS. CALL LIGHT IN REACH.
[2019-12-29 08:00] VITALS: BP 134/68
--- NOTE | 2019-12-29 08:00 | NUR ---
AROUSES EASILY.DENIES NEEDS AT PRESENT TIME.GENERALIZED WEAKNESS PRESENT.IS ALERT AND ORIENTED X 4.ASSESSMENT COMPLETED.CL IN EASY REACH,BED IN LOW POSITION.WILL CONTINUE WITH PLAN OF CARE.
[2019-12-29 08:19] LABS: BASOPHILS 0.2 % (0-2); HEMATOCRIT 43.1 % (36.0-48.0); HEMOGLOBIN 13.8 g/dL (12-16); IMMATURE GRANULOCYTES 0.5 % (0-5); LYMPHOCYTES 35.1 % (15-50); MCH 30.6 pg (26.0-34.0); MCV 95.6 fL (80.0-100.0); MEAN PLATELET VOLUME 10.3 fL (7.4-10.4); MONOCYTES 10.9 % (2-11); NEUTROPHILS 51.3 % (40-80); PLATELET COUNT 291 10x3/uL (130-400); RBC 4.51 10x6/uL (4.00-5.40); RDW 13.6 % (11.5-14.5); WBC 6.6 10x3/uL (4.8-10.8)
[2019-12-29 08:29] LABS: CALC OSMOLALITY 279 mosm/kg (275-300); CALCIUM 9.2 mg/dL (8.5-10.1); CARBON DIOXIDE 30.4 mmol/L (21.0-32.0); CHLORIDE - SERUM 102 mmol/L (98-107); CREATININE - SERUM 0.4 mg/dL (0.6-1.3); GLUCOSE 132 mg/dL (74-106); POTASSIUM - SERUM 4.1 mmol/L (3.5-5.1); SODIUM 140 mmol/L (136-145); UREA NITROGEN 11 mg/dL (7-18); eGFR NON AFRICAN AMERICAN > 90 mL/min (90-120)
--- NOTE | 2019-12-29 15:30 | NUR ---
CARE TEAM MEETING: PATIENT PROGRESSING IN THERAPY. TENATIVE DISCHARGE DATE IS 01/04/20. WILL CONTINUE TO FOLLOW WITH PATIENT AND WILL ASSIST WITH NEEDS.
--- NOTE | 2019-12-29 19:01 | NUR ---
GREETED PATIENT AND INTRODUCED MYSELF HER NURSE. PATIENT IS LAYING IN BED RESTING QUIETLY AT THIS TIME. RESPIRATIONS EVEN. NO S/S OF DISTRESS. CALL LIGHT IN REACH. DENIES ANY FURTHER NEEDS AT THIS TIME.
[2019-12-29 21:42] VITALS: BP 140/70
--- NOTE | 2019-12-30 02:08 | NUR ---
PT RESTING QUIETLY WITH EYES CLOSED. RESPIRATIONS EVEN. NO S/S OF DISTRESS. CALL LIGHT IN REACH.
[2019-12-30 08:00] VITALS: BP 135/63
--- NOTE | 2019-12-30 08:00 | NUR ---
PATIENT IS ALERT TO SLEF, SITINUATION, AND PLACE. SITTING UP IN BED TO EAT BREAKFAST. BED ALARM ON. CALL LIGHT WITHIN REACH. WILL CONTINUE WITH PLAN OF CARE
--- NOTE | 2019-12-30 10:04 | NUR ---
PATIENT IN REHAB ROOM. WORKING WITH PHYSICAL THERAPIST. DENIES ANY PAIN/DISC AT THIS TIME
--- NOTE | 2019-12-30 11:05 | NUR ---
DR Natalya MITTAL, NEUROLOGIST CONSULTED ON THIS PATIENT. NEW ORDERS FOR LAB WORK, MRI OF THE BRAIN AND UA WITH C/S.
--- NOTE | 2019-12-30 11:18 | NUR ---
SALINE LOCK 22 KENNETH INSERTED TO LEFT WRIST.
[2019-12-30 11:57] LABS: BASOPHILS 0.1 % (0-2); HEMATOCRIT 46.6 % (36.0-48.0); HEMOGLOBIN 14.9 g/dL (12-16); IMMATURE GRANULOCYTES 0.3 % (0-5); LYMPHOCYTES 26.3 % (15-50); MCH 30.8 pg (26.0-34.0); MCV 96.3 fL (80.0-100.0); MEAN PLATELET VOLUME 10.2 fL (7.4-10.4); MONOCYTES 7.3 % (2-11); PLATELET COUNT 320 10x3/uL (130-400); RBC 4.84 10x6/uL (4.00-5.40); RDW 13.6 % (11.5-14.5); WBC 7.1 10x3/uL (4.8-10.8)
[2019-12-30 12:00] LABS: ALBUMIN 3.6 g/dL (3.4-5.0); ALKALINE PHOSPHATASE 59 U/L (30-120); ALT (SGPT) 18 U/L (10-68); BILIRUBIN - TOTAL 0.52 mg/dL (0.2-1.3); CALCIUM 9.3 mg/dL (8.5-10.1); CARBON DIOXIDE 31.4 mmol/L (21.0-32.0); CHLORIDE - SERUM 99 mmol/L (98-107); CREATINE KINASE 28 UL (21-215); POTASSIUM - SERUM 4.5 mmol/L (3.5-5.1); PROTEIN - SERUM 7.4 g/dL (6.4-8.2); SODIUM 140 mmol/L (136-145); UREA NITROGEN 12 mg/dL (7-18)
[2019-12-30 12:01] LABS: CALC OSMOLALITY 283 mosm/kg (275-300); CREATININE - SERUM 0.6 mg/dL (0.6-1.3); GLUCOSE 184 mg/dL (74-106); eGFR NON AFRICAN AMERICAN > 90 mL/min (90-120)
[2019-12-30 12:13] LABS: BACTERIA MODERATE /hpf (NEGATIVE); BILIRUBIN NEGATIVE (NEGATIVE); EPITHELIAL CELLS 0-5 /hpf (0-5); GLUCOSE NEGATIVE (NEGATIVE); HYALINE CAST 0-5 /lpf (NONE SEEN); KETONE SMALL mg/dL (NEGATIVE); NITRITE NEGATIVE (NEGATIVE); RED CELLS - URINE NONE SEEN /hpf (0-5); SPECIFIC GRAVITY 1.015 (1.005-1.020)
--- NOTE | 2019-12-30 17:22 | NUR ---
STAFF TOOK PATIENT OFF UNIT FOR MRI
--- NOTE | 2019-12-30 17:55 | NUR ---
I have reviewed this patient and I concur with the Shift Assessment completed by the Licensed Practical Nurse today this shift.
--- NOTE | 2019-12-30 18:55 | NUR ---
PATIENT IS CURRENTLY VISITING WITH DR. MITTAL CONCERNING HER RECENT TEST. PATIENT IS AOX4 AND STATES NO EVIDENCE OF PAIN. CALL LIGHT IN REACH.
[2019-12-30 20:54] VITALS: BP 132/72
--- NOTE | 2019-12-31 01:46 | NUR ---
PT RESTING QUIETLY WITH EYES CLOSED. RESPIRATIONS EVEN. NO S/S OF DISTRESS. CALL LIGHT IN REACH.
--- NOTE | 2019-12-31 03:51 | NUR ---
PT RESTING QUIETLY WITH EYES CLOSED. RESPIRATIONS EVEN. NO S/S OF DISTRESS. CALL LIGHT IN REACH.
[2019-12-31 06:14] LABS: BASOPHILS 0.2 % (0-2); EOSINOPHILS 2.5 % (0-7); HEMATOCRIT 42.5 % (36.0-48.0); HEMOGLOBIN 13.4 g/dL (12-16); IMMATURE GRANULOCYTES 0.6 % (0-5); LYMPHOCYTES 38.8 % (15-50); MCH 30.1 pg (26.0-34.0); MCHC 31.5 g/dL (31.0-37.0); MCV 95.5 fL (80.0-100.0); MEAN PLATELET VOLUME 10.4 fL (7.4-10.4); NEUTROPHILS 47.9 % (40-80); PLATELET COUNT 294 10x3/uL (130-400); RBC 4.45 10x6/uL (4.00-5.40); RDW 13.7 % (11.5-14.5); WBC 6.4 10x3/uL (4.8-10.8)
[2019-12-31 06:18] LABS: CALCIUM 9.1 mg/dL (8.5-10.1); CARBON DIOXIDE 31.7 mmol/L (21.0-32.0); CHLORIDE - SERUM 104 mmol/L (98-107); SODIUM 141 mmol/L (136-145); UREA NITROGEN 11 mg/dL (7-18)
[2019-12-31 06:19] LABS: CALC OSMOLALITY 280 mosm/kg (275-300); CREATININE - SERUM 0.4 mg/dL (0.6-1.3); GLUCOSE 115 mg/dL (74-106); POTASSIUM - SERUM 3.4 mmol/L (3.5-5.1); eGFR NON AFRICAN AMERICAN > 90 mL/min (90-120)
--- NOTE | 2019-12-31 07:54 | NUR ---
RESTING IN BED, AWAKE AND ALERT WATCHING TV, ASSESSMENT COMPLETE, DENIES ANY NEEDS AT THIS TIME, C/L AND FLUIDS IN REACH.
[2019-12-31 08:18] VITALS: BP 155/73
--- NOTE | 2019-12-31 12:32 | NUR ---
PATIENT AWAKE AND ALERT, DENIES ANY NEEDS AT THIS TIME, C/L AND FLUIDS IN REACH.
--- NOTE | 2019-12-31 16:00 | NUR ---
PATIENT AWAKE AND ALERT UP IN W/C WATCHING TV, DENIES ANY NEEDS AT THIS TIME, C/L AND FLUIDS IN REACH.
--- NOTE | 2019-12-31 19:15 | NUR ---
PT SITTING UP IN WHEELCHAIR AT BEDSIDE. CL IN REACH. PT A/O X4. DENIES NEEDS OR PAIN AT THIS TIME. RESP EVEN AND UNLABORED. LUNGS CLEAR. BOWEL ACTIVE X4. ASSIST X2. LEFT HAND SL. WILL CONTINUE TO MONITOR.
[2019-12-31 20:00] VITALS: BP 137/73
--- NOTE | 2020-01-01 02:30 | NUR ---
ASSISTED ON BEDPAN DUE TO PT STATING THAT SHE COULD NOT MAKE IT TO BATHROOM. PT URINATED IN BEDPAN. DENIES FURTHER NEEDS. CL IN REACH. WCTM
--- NOTE | 2020-01-01 05:00 | NUR ---
I have reviewed this patient and I concur with the Shift Assessment completed by the Licensed Practical Nurse today this shift.
--- NOTE | 2020-01-01 08:00 | NUR ---
INTRODUCED SELF TO PATIENT AND WROTE NAME ON BOARD, V/S AND ASSESSMENT COMPLETED, PATIENT DENIES ANY NEEDS AT THIS TIME, C/L AND FLUIDS IN REACH.
[2020-01-01 08:13] VITALS: BP 133/69
--- NOTE | 2020-01-01 12:27 | NUR ---
UP IN BED WATCHING TV, DENIES ANY NEEDS AT THIS TIME, C/L AND FLUIDS IN REACH.
--- NOTE | 2020-01-01 15:58 | NUR ---
PATIENT RESTING IN BED WITH EYES CLOSED, NO S/S OF DISTRESS NOTED, RESP EVEN AND UNLABORED, C/L AND FLUIDS IN REACH.
--- NOTE | 2020-01-01 19:10 | NUR ---
PT LYING IN BED WATCHING TV. CL IN REACH. BED ALARM ON. BED IN LOW SIDE RAILS X2. A/O X4. LUNGS CLEAR. BOWEL ACTIVE X4. RESP EVEN AND UNLABORED. DENIES NEEDS OR PAIN AT THIS TIME. WILL CONTINUE TO MONITOR.
[2020-01-01 20:00] VITALS: BP 153/77
--- NOTE | 2020-01-01 23:46 | NUR ---
I have reviewed this patient and I concur with the Shift Assessment completed by the Licensed Practical Nurse today this shift.
--- NOTE | 2020-01-02 08:15 | NUR ---
PT RESTING IN BED WITH EYES OPEN CALL LIGHT IN REACH PT EATING BREAKFAST
--- NOTE | 2020-01-02 18:15 | NUR ---
PT RESTING IN BED WITH EYES OPEN CALL LIGHT IN REACH NO PROBLEMS WILL MONITER
--- NOTE | 2020-01-02 19:15 | NUR ---
PT LYING IN BED RESTING QUIETLY. CL IN REACH. DENIES NEEDS AT THIS TIME. BED IN LOW SIDE RAILS X2. BED ALARM ON. RESP EVEN AND UNLABORED. LUNGS CLEAR. BOWEL ACTIVE X4. WILL CONTINUE TO MONITOR.
[2020-01-02 20:20] VITALS: BP 135/77
[2020-01-03 06:26] LABS: CALC OSMOLALITY 280 mosm/kg (275-300); CALCIUM 9.3 mg/dL (8.5-10.1); CARBON DIOXIDE 31.4 mmol/L (21.0-32.0); CHLORIDE - SERUM 102 mmol/L (98-107); CREATININE - SERUM 0.4 mg/dL (0.6-1.3); GLUCOSE 110 mg/dL (74-106); POTASSIUM - SERUM 3.6 mmol/L (3.5-5.1); SODIUM 141 mmol/L (136-145); UREA NITROGEN 9 mg/dL (7-18); eGFR NON AFRICAN AMERICAN > 90 mL/min (90-120)
[2020-01-03 07:08] LABS: HEMATOCRIT 44.8 % (36.0-48.0); HEMOGLOBIN 14.6 g/dL (12-16); LYMPHOCYTES 37.1 % (15-50); MCH 30.4 pg (26.0-34.0); MCHC 32.6 g/dL (31.0-37.0); MCV 93.3 fL (80.0-100.0); MEAN PLATELET VOLUME 10.3 fL (7.4-10.4); NEUTROPHILS 52.2 % (40-80); PLATELET COUNT 270 10x3/uL (130-400); RDW 13.5 % (11.5-14.5); WBC 5.6 10x3/uL (4.8-10.8)
--- NOTE | 2020-01-03 08:16 | NUR ---
ALERT AND ORIENTED. BREAKFAST IN ROOM. RESP EVEN AND UNLABORED. NO C/O PAIN. CL IN REACH.
[2020-01-03 08:20] VITALS: BP 136/83
--- NOTE | 2020-01-03 10:38 | NUR ---
SHOWER WITH PT. SITTING UP IN CHAIR NOW. NO DISTRESS NOTED.
--- NOTE | 2020-01-03 11:26 | NUR ---
SPOKE WITH PATIENT AND A REFERRAL HAS BEEN FAXED TO [facility] FOR POSSIBLE ADMISSION ON 01/04/20. WILL CONTINUE TO FOLLOW WITH PATIENT.
--- NOTE | 2020-01-03 14:07 | NUR ---
Nutrition follow-up: Diet: Consistent CHO PO intake ~58% average of last 9 meals labs reviewed Wt: 121# PO intake fair to good at meals RDN following.
--- NOTE | 2020-01-03 14:12 | NUR ---
L HAND SL DC'D WITH CATH INTACT. BANDAID APPLIED.
--- NOTE | 2020-01-03 16:38 | NUR ---
ASSISTED TO BED X 2 STAFF. RESTING WO DISTRESS. CL IN REACH. NO CHANGE IN ASSESSMENT.
[2020-01-03 20:00] VITALS: BP 146/84
[2020-01-04 08:00] VITALS: BP 138/70
--- NOTE | 2020-01-04 08:00 | NUR ---
SHIFT ASSMT COMPLETED.BREAKFAST GIVEN.CL IN REACH.MEAL SET-UP PROVIDED.
--- NOTE | 2020-01-04 16:30 | NUR ---
PATIENT HAS BEEN ACCEPTED TO [facility] AND [facility] AND WILL DISCHARGE THERE IN AM. WILL CONTINUE TO FOLLOW WITH PATIENT.
--- NOTE | 2020-01-04 19:58 | NUR ---
AWAKE AND ALERT. RESTING IN BED WITH RESPIRATIONS UNLABORED. NO ACUTE DISTRESS NOTED. CALL LIGHT IN REACH.
[2020-01-04 21:18] VITALS: BP 133/74
--- NOTE | 2020-01-05 01:03 | NUR ---
RESTING IN BED WIHT RESPIRAITONS UNLABORED. NO DISTRESS NOTED. CALL LIGHT IN REACH.
--- NOTE | 2020-01-05 04:59 | NUR ---
QUIET HOURS. NO ACUTE CHANGES IN CONDITION THIS SHIFT. NO DISTRESS NOTED. CALL LIGHT IN REACH.
--- NOTE | 2020-01-05 09:23 | NUR ---
PATIENT DISCHARGING TO [facility]. NO HOME HEALTH OR DME NEEDED AT THIS TIME. AN APPOINTMENT WITH DR. MITTAL AND IRENE EUBANKS APN WILL BE MADE AT TIME OF DISCHARGE FROM FACILITY. DRISS SIGNED , IMM SERVED AND EXPLAINED. NO COMPARE DATA REVIEWED PER PATIENT. DISCHARGE INSTRUCTIONS FAXED TO PCP, SNF AND REVIEWED WITH PATIENT. PATIENT FAMILY HAS BEEN NOTIFIED.
== END 2020-01-05 13:30 | DRG 93 ==
LOC: D.REHAB 15:36
PROVIDERS: Psychiatry & Neurology Neurology; ADMIT Emergency Medicine; ATTEND Emergency Medicine
DX: G72.81 Critical illness myopathy (principal); K52.9 Noninfective gastroenteritis and colitis, unspecified; E86.0 Dehydration; E11.69 Type 2 diabetes mellitus with other specified complication; G83.11 Monoplegia of lower limb affecting right dominant side; F07.81 Postconcussional syndrome; Z91.81 History of falling